=== PATIENT | female | born 1935 | race Caucasian/White ===

== ENCOUNTER 2023-10-06 16:08 | Observation (INO) | payer MEDICARE ==
[2023-10-06 17:50] LABS: BASOPHILS ABSOLUTE AUTO 0.03 K/uL (0.00-0.20); BASOPHILS PERCENT AUTO 0.4 % (0.0-1.0); HEMATOCRIT 39.5 % (37.0-47.0); HEMOGLOBIN 13.4 g/dL (12.0-16.0); IMMATURE GRAN ABSOLUTE AUTO 0.02 K/uL (0.00-0.05); IMMATURE GRAN PERCENT AUTO 0.2 % (0.0-0.4); LYMPHOCYTES ABSOLUTE AUTO 0.57 K/uL (1.00-4.80); MEAN CORPUSCULAR HEMOGLOBIN 31.9 pg (28.0-32.0); MEAN CORPUSCULAR HGB CONC 33.9 g/dL (32.0-36.0); MEAN PLATELET VOLUME 9.7 fL (9.4-12.3); MONOCYTES ABSOLUTE AUTO 0.57 K/uL (0.00-0.80); NEUTROPHILS ABSOLUTE AUTO 6.92 K/uL (1.80-7.70); NEUTROPHILS PERCENT AUTO 85.4 % (41.0-71.0); PLATELET COUNT,PLT 144 K/uL (150-400); WHITE BLOOD CELL COUNT,WBC 8.11 K/uL (3.9-11.3)
[2023-10-06 18:17] LABS: A/G RATIO 1.1 (0.9-1.6); ALBUMIN 3.5 g/dL (3.4-5.0); BILIRUBIN TOTAL 0.7 mg/dL (0.2-1.0); CALCIUM 9.5 mg/dL (8.5-10.1); CARBON DIOXIDE,CO2 27.5 mmol/L (21.0-32.0); EST CRCL DRUG DOSING (CG) 37.8 mL/min; MAGNESIUM 1.9 mg/dL (1.8-2.4); POTASSIUM,K 3.8 mmol/L (3.5-5.1); PROTEIN TOTAL,TP 6.6 g/dL (6.4-8.2)
[2023-10-06 18:21] LABS: CORONAVIRUS COVID-19 NAA POSITIVE (NEGATIVE); INFLUENZA A NAA NEGATIVE (NEGATIVE); INFLUENZA B NAA NEGATIVE (NEGATIVE); RESPIRATORY SYNCYTIAL VIR NAA NEGATIVE (NEGATIVE)
[2023-10-06 18:21] LABS: LACTIC ACID 0.8 mmol/L (0.4-2.0)
[2023-10-06] MEDS: Nirmatrelvir/Ritonavir 150 MG/100 MG Dose Pack PO SCH (22:18)
[2023-10-06] MEDS: Enoxaparin 40 MG/0.4 ML Syringe SUBCUT SCH (22:33)
[2023-10-07] MEDS: Acetaminophen 325 MG Tab PO PRN ×2 (03:18→17:06)
[2023-10-07 06:06] LABS: BASOPHILS ABSOLUTE AUTO 0.03 K/uL (0.00-0.20); BASOPHILS PERCENT AUTO 0.4 % (0.0-1.0); EOSINOPHILS ABSOLUTE AUTO 0.02 K/uL (0.00-0.45); EOSINOPHILS PERCENT AUTO 0.3 % (0.0-6.0); HEMATOCRIT 38.5 % (37.0-47.0); HEMOGLOBIN 12.9 g/dL (12.0-16.0); IMMATURE GRAN ABSOLUTE AUTO 0.02 K/uL (0.00-0.05); IMMATURE GRAN PERCENT AUTO 0.3 % (0.0-0.4); LYMPHOCYTES ABSOLUTE AUTO 0.74 K/uL (1.00-4.80); LYMPHOCYTES PERCENT AUTO 10.3 % (24.0-44.0); MEAN CORPUSCULAR HEMOGLOBIN 31.4 pg (28.0-32.0); MEAN CORPUSCULAR HGB CONC 33.5 g/dL (32.0-36.0); MEAN CORPUSCULAR VOLUME 93.7 fL (83.0-99.0); MEAN PLATELET VOLUME 9.6 fL (9.4-12.3); MONOCYTES ABSOLUTE AUTO 0.62 K/uL (0.00-0.80); MONOCYTES PERCENT AUTO 8.6 % (0.0-8.0); NEUTROPHILS ABSOLUTE AUTO 5.77 K/uL (1.80-7.70); NEUTROPHILS PERCENT AUTO 80.1 % (41.0-71.0); PLATELET COUNT,PLT 146 K/uL (150-400); RED BLOOD CELL COUNT 4.11 M/uL (4.10-5.30)
[2023-10-07 06:41] LABS: ALBUMIN 3.2 g/dL (3.4-5.0); BILIRUBIN TOTAL 0.6 mg/dL (0.2-1.0); CARBON DIOXIDE,CO2 26.4 mmol/L (21.0-32.0); CREATININE 0.9 mg/dL (0.6-1.0); POTASSIUM,K 3.9 mmol/L (3.5-5.1); PROTEIN TOTAL,TP 6.4 g/dL (6.4-8.2)
[2023-10-07 08:00] LABS: BILIRUBIN,URINE SMALL (NEGATIVE); COLOR,URINE YELLOW; GLUCOSE,URINE NEGATIVE (NEGATIVE); KETONES,URINE 40 mg/dL (NEGATIVE); LEUKOCYTE ESTERASE,URINE NEGATIVE (NEGATIVE); NITRITE,URINE NEGATIVE (NEGATIVE); OCCULT BLOOD,URINE NEGATIVE (NEGATIVE); PROTEIN,URINE TRACE mg/dL (NEGATIVE); UROBILINOGEN,URINE 0.2 EU/dL (<2.0)
[2023-10-07 08:01] LABS: APPEARANCE,URINE HAZY
[2023-10-07 08:06] LABS: BACTERIA,URINE FEW (NEGATIVE); EPITHELIAL CELLS,URINE FEW (NONE-FEW); HYALINE CASTS,URINE 0-1 (0-2/LPF); MUCUS,URINE LIGHT (NONE-MOD); RBC,URINE 0-2 (0-2/HPF)
[2023-10-07] MEDS: Nirmatrelvir/Ritonavir 150 MG/100 MG Dose Pack PO SCH (09:19)
[2023-10-07] MEDS: Enoxaparin 40 MG/0.4 ML Syringe SUBCUT SCH (20:24)
[2023-10-07] MEDS: Nirmatrelvir/Ritonavir 300 MG/100 MG Dose Pack PO SCH (20:30)
[2023-10-08] MEDS: Nirmatrelvir/Ritonavir 300 MG/100 MG Dose Pack PO SCH (10:18)
== END 2023-10-08 11:53 | disposition home or self-care (01) ==
LOC: MW.ED 16:08 → MW.MS 19:45 → UNDODISOB 10-07 13:23
PROVIDERS: ADMIT Internal Medicine; ATTEND Internal Medicine
DX: U07.1 COVID-19 (principal); R26.2 Difficulty in walking, not elsewhere classified; G30.9 Alzheimer's disease, unspecified; F02.80 Dementia in other diseases classified elsewhere, unspecified severity, without behavioral disturbance, psychotic disturbance, mood disturbance, and anxiety; E78.00 Pure hypercholesterolemia, unspecified; Z79.899 Other long term (current) drug therapy; Z91.018 Allergy to other foods; Z88.5 Allergy status to narcotic agent
CPT/HCPCS: 0241U; 36415; 71045; 80053; 81001; 83605; 83735; 84484; 85025; 96372; 99285; A9270; G0378; J1650; 99221; 99231; 99238

== ENCOUNTER 2024-08-23 15:12 | Emergency (ER) | payer MEDICARE, OTHER ==
[2024-08-23] MEDS ORDERED: Sodium Chloride 0.9% 2.5 ML Syringe FLUSH PRN (15:47)
[2024-08-23] MEDS ORDERED: Sodium Chloride 0.9% 10 ML Syringe FLUSH PRN (15:47)
[2024-08-23] MEDS: Morphine 4 MG/ML Syringe IVPUSH ONE (16:38)
[2024-08-23 16:53] LABS: BASOPHILS ABSOLUTE AUTO 0.03 K/uL (0.00-0.20); BASOPHILS PERCENT AUTO 0.4 % (0.0-1.0); EOSINOPHILS ABSOLUTE AUTO 0.08 K/uL (0.00-0.45); EOSINOPHILS PERCENT AUTO 1.1 % (0.0-6.0); HEMATOCRIT 40.8 % (37.0-47.0); HEMOGLOBIN 13.5 g/dL (12.0-16.0); IMMATURE GRAN ABSOLUTE AUTO 0.05 K/uL (0.00-0.05); IMMATURE GRAN PERCENT AUTO 0.7 % (0.0-0.4); LYMPHOCYTES ABSOLUTE AUTO 0.93 K/uL (1.00-4.80); LYMPHOCYTES PERCENT AUTO 13.1 % (24.0-44.0); MEAN CORPUSCULAR HEMOGLOBIN 30.7 pg (28.0-32.0); MEAN CORPUSCULAR HGB CONC 33.1 g/dL (32.0-36.0); MEAN CORPUSCULAR VOLUME 92.7 fL (83.0-99.0); MEAN PLATELET VOLUME 9.6 fL (9.4-12.3); MONOCYTES ABSOLUTE AUTO 0.19 K/uL (0.00-0.80); MONOCYTES PERCENT AUTO 2.7 % (0.0-8.0); NEUTROPHILS ABSOLUTE AUTO 5.83 K/uL (1.80-7.70); PLATELET COUNT,PLT 172 K/uL (150-400); WHITE BLOOD CELL COUNT,WBC 7.11 K/uL (3.9-11.3)
[2024-08-23 17:26] LABS: INR 1.01 (0.86-1.11)
[2024-08-23 17:35] LABS: A/G RATIO 1.4 (0.9-1.6); ALBUMIN 3.7 g/dL (3.4-5.0); BILIRUBIN TOTAL 0.4 mg/dL (0.2-1.0); CALCIUM 9.4 mg/dL (8.5-10.1); CARBON DIOXIDE,CO2 29.4 mmol/L (21.0-32.0); CREATININE 0.8 mg/dL (0.6-1.0); EST CRCL DRUG DOSING (CG) 46.38 mL/min; POTASSIUM,K 3.6 mmol/L (3.5-5.1); PROTEIN TOTAL,TP 6.4 g/dL (6.4-8.2)
[2024-08-23] MEDS: Lidocaine 4% 1 each Patch TOP STA (23:23)
[2024-08-23] MEDS: Acetaminophen/oxyCODONE 325-5 MG Tab PO ONE (23:24)
[2024-08-23] MEDS: Acetaminophen 325 MG Tab PO ONE (23:24)
[2024-08-24] MEDS: Morphine 4 MG/ML Syringe IVPUSH ONE (06:49)
== END 2024-08-24 06:57 ==
LOC: MW.ED 15:12
DX: S72.011A Unspecified intracapsular fracture of right femur, initial encounter for closed fracture (principal); S00.03XA Contusion of scalp, initial encounter; S50.311A Abrasion of right elbow, initial encounter; Z86.16 Personal history of COVID-19; Z88.5 Allergy status to narcotic agent; Z91.018 Allergy to other foods; Z79.899 Other long term (current) drug therapy; Z75.8 Other problems related to medical facilities and other health care; W01.198A Fall on same level from slipping, tripping and stumbling with subsequent striking against other object, initial encounter
CPT/HCPCS: 36415; 51702; 70450; 71045; 72125; 73590; 73700; 80053; 84484; 85025; 85610; 93005; 96374; 96376; 99285; A9270; J2270; 99283